=== PATIENT | female | born 1945 | race Caucasian/White ===

== ENCOUNTER 2020-11-22 15:11 | Inpatient (IN) | payer OTHER ==
[~2020-11-22] VITALS: Ht 162.6 cm; Wt 77.6 kg
[2020-11-22] MEDS ORDERED: PROAIR DIGIHAL90 MCG INH (17:52)
[2020-11-22] MEDS ORDERED: VITAMIN D325 MCG PO (17:53)
[2020-11-22] MEDS ORDERED: VITAMIN C 500500 MG PO (17:53)
[2020-11-22] MEDS ORDERED: VITAMIN E400 UNI4 PO (17:53)
[2020-11-22] MEDS ORDERED: EYE MULTIVITAM1 EAC1 PO (17:54)
[2020-11-22] MEDS ORDERED: PEPCID20 MG PO (17:54)
[2020-11-22 17:58] LABS: HEMOGLOBIN 10.7 gm/dl (12.3-15.3); RED BLOOD COUNT 5.11 M/UL (4.00-5.10); WHITE BLOOD COUNT 13.2 K/UL (4.5-11.0)
[2020-11-22 18:22] LABS: BUN/CREATININE RATIO 28 (0-10)
[2020-11-23 07:32] LABS: HEMOGLOBIN 10.5 gm/dl (12.3-15.3); RED BLOOD COUNT 5.2 M/UL (4.00-5.10)
[2020-11-23 07:54] LABS: WHITE BLOOD COUNT 17.7 K/UL (4.5-11.0)
[2020-11-23 08:01] LABS: BUN/CREATININE RATIO 33 (0-10)
[2020-11-24 04:31] LABS: HEMOGLOBIN 10.1 gm/dl (12.3-15.3); RED BLOOD COUNT 4.85 M/UL (4.00-5.10); WHITE BLOOD COUNT 14.1 K/UL (4.5-11.0)
[2020-11-24 04:59] LABS: BUN/CREATININE RATIO 21 (0-10)
[2020-11-26 06:11] LABS: HEMOGLOBIN 9.7 gm/dl (12.3-15.3); RED BLOOD COUNT 4.65 M/UL (4.00-5.10); WHITE BLOOD COUNT 14.1 K/UL (4.5-11.0)
[2020-11-26 06:45] LABS: BUN/CREATININE RATIO 16 (0-10)
[2020-11-27 10:05] LABS: HEMOGLOBIN 9.8 gm/dl (12.3-15.3); RED BLOOD COUNT 4.69 M/UL (4.00-5.10); WHITE BLOOD COUNT 13.7 K/UL (4.5-11.0)
[2020-11-27 10:30] LABS: BUN/CREATININE RATIO 16 (0-10)
[2020-11-28 07:29] LABS: HEMOGLOBIN 8.7 gm/dl (12.3-15.3); RED BLOOD COUNT 4.24 M/UL (4.00-5.10); WHITE BLOOD COUNT 13.6 K/UL (4.5-11.0)
[2020-11-28 08:51] LABS: BUN/CREATININE RATIO 14 (0-10)
[2020-11-29 08:55] LABS: HEMOGLOBIN 9.1 gm/dl (12.3-15.3); RED BLOOD COUNT 4.39 M/UL (4.00-5.10)
[2020-11-29 08:56] LABS: WHITE BLOOD COUNT 17.3 K/UL (4.5-11.0)
[2020-11-29 09:14] LABS: BUN/CREATININE RATIO 11 (0-10)
[2020-11-29] MEDS ORDERED: ELIQUIS 5 MG TAB5 MG PO ×2 (15:49)
[2020-11-29] MEDS ORDERED: TOPROL XL25 MG PO (15:49)
[2020-11-29] MEDS ORDERED: DECADRON6 MG PO (15:49)
== END 2020-11-29 20:02 | disposition home health service (06) | DRG 177 ==
LOC: MED SURG 4 15:11
PROVIDERS: ADMIT Internal Medicine
PROC: 8E0ZXY6 Isolation (ICD-10-PCS; principal; 2020-11-22)
PROC: XW033E5 Introduction of Remdesivir Anti-infective into Peripheral Vein, Percutaneous Approach, New Technology Group 5 (ICD-10-PCS; 2020-11-22)
PROC: 3E0333Z Introduction of Anti-inflammatory into Peripheral Vein, Percutaneous Approach (ICD-10-PCS; 2020-11-22)
PROC: B24BZZ4 Ultrasonography of Heart with Aorta, Transesophageal (ICD-10-PCS; 2020-11-23)
DX: U07.1 COVID-19 (principal); J12.82 Pneumonia due to coronavirus disease 2019; I26.99 Other pulmonary embolism without acute cor pulmonale; J80 Acute respiratory distress syndrome; E87.2 Acidosis; E44.0 Moderate protein-calorie malnutrition; Z66 Do not resuscitate; E88.09 Other disorders of plasma-protein metabolism, not elsewhere classified; K21.9 Gastro-esophageal reflux disease without esophagitis; R00.0 Tachycardia, unspecified; I07.1 Rheumatic tricuspid insufficiency; Z79.01 Long term (current) use of anticoagulants; Z90.49 Acquired absence of other specified parts of digestive tract; Z83.3 Family history of diabetes mellitus; Z80.1 Family history of malignant neoplasm of trachea, bronchus and lung; Z82.49 Family history of ischemic heart disease and other diseases of the circulatory system; Z68.29 Body mass index [BMI] 29.0-29.9, adult
CPT/HCPCS: ECHO; 36415; 71045; 80053; 82550; 82553; 83605; 83735; 84100; 84132; 84484; 85025; 85384; 85610; 85730; 86140; 93306; 93970; 94640; 94664; 94760; J0456; J0696; J1100; J1644; J7030

== ENCOUNTER → 2020-12-22 | Outpatient (CLI) | payer OTHER ==
[~2020-12-22] MED LIST: DECADRON6 MG PO; ELIQUIS 5 MG TAB5 MG PO; EYE MULTIVITAM1 EAC1 PO; PEPCID20 MG PO; PROAIR DIGIHAL90 MCG INH; TOPROL XL25 MG PO; VITAMIN C 500500 MG PO; VITAMIN D325 MCG PO; VITAMIN E400 UNI4 PO
== END ==
LOC: EXRD 14:09
DX: U09.9 Post COVID-19 condition, unspecified (principal); R91.8 Other nonspecific abnormal finding of lung field
CPT/HCPCS: 71046

== ENCOUNTER → 2020-12-29 | Outpatient (CLI) | payer OTHER ==
[2020-12-29 14:54] LABS: HEMOGLOBIN 10.5 gm/dl (12.3-15.3); RED BLOOD COUNT 4.49 M/UL (4.00-5.10); WHITE BLOOD COUNT 9.1 K/UL (4.5-11.0)
== END ==
LOC: US 13:35
PROVIDERS: Internal Medicine Pulmonary Disease
DX: I26.99 Other pulmonary embolism without acute cor pulmonale (principal); R91.8 Other nonspecific abnormal finding of lung field; T45.515A Adverse effect of anticoagulants, initial encounter
CPT/HCPCS: 36415; 85025; 85379; 85610; 85730; 93970

== ENCOUNTER → 2021-01-26 | Outpatient (CLI) | payer OTHER | LOC: HEART 5 11:13 | DX: J96.11 Chronic respiratory failure with hypoxia (principal) | CPT/HCPCS: 94010; 94729 ==

== ENCOUNTER → 2021-02-07 | Outpatient (CLI) | payer OTHER | LOC: EXRD 09:33 | DX: J96.11 Chronic respiratory failure with hypoxia (principal); R91.8 Other nonspecific abnormal finding of lung field | CPT/HCPCS: 71046 ==

== ENCOUNTER → 2021-04-10 | Outpatient (CLI) | payer OTHER | LOC: EXRD 13:09 | DX: J96.11 Chronic respiratory failure with hypoxia (principal) | CPT/HCPCS: 71046 ==

== ENCOUNTER → 2021-04-25 | Outpatient (CLI) | payer OTHER | LOC: HEART 5 09:30 | DX: R06.02 Shortness of breath (principal); R04.0 Epistaxis; I34.0 Nonrheumatic mitral (valve) insufficiency | CPT/HCPCS: 93306 ==